=== PATIENT | female | born 1960 | race Caucasian/White ===

== ENCOUNTER 2019-09-03 13:03 | Emergency (ER) | payer OTHER ==
[~2019-09-03] VITALS: Ht 160 cm; Wt 59.0 kg
[~2019-09-03 13:03] MED LIST: COZAAR25 MG; SYNTHROID50 MCG
[2019-09-03] MEDS ORDERED: LEVOXYL75 MCG (14:09)
== END 2019-09-03 19:00 | disposition home or self-care (01) ==
LOC: ER 13:03
DX: H81.13 Benign paroxysmal vertigo, bilateral (principal)

== ENCOUNTER 2021-01-09 08:30 | Inpatient (IN) | payer OTHER ==
[~2021-01-09] VITALS: Ht 162.6 cm; Wt 59.0 kg
[~2021-01-09 08:30] MED LIST changes: +LEVOXYL75 MCG
[2021-01-09] MEDS ORDERED: LEVOXYL88 MCG PO (12:20)
[2021-01-09] MEDS ORDERED: LEVOXYL75 MCG PO (12:20)
[2021-01-09] MEDS ORDERED: COZAAR25 MG PO (12:20)
[2021-01-13] MEDS ORDERED: FAMOTIDINE20 MG (10:55)
[2021-01-16] MEDS ORDERED: ULTRACET PO (12:36)
[2021-01-16] MEDS ORDERED: INTESTINEX680 M1 PO (12:36)
[2021-01-16] MEDS ORDERED: HYOSCYAMINE0.125 M1 SL (12:36)
[2021-01-16] MEDS ORDERED: DICLOFENAC SODI75 MG PO (12:37)
[2021-01-16] MEDS ORDERED: PROTONIX40 MG PO (12:37)
== END 2021-01-16 16:00 | disposition home or self-care (01) | DRG 331 ==
LOC: O/R 01-13 05:30 → SURH 01-13 05:30
PROVIDERS: ADMIT Surgery; ATTEND Surgery
PROC: 0DTP4ZZ Resection of Rectum, Percutaneous Endoscopic Approach (ICD-10-PCS; 2021-01-13)
PROC: 0DTN4ZZ Resection of Sigmoid Colon, Percutaneous Endoscopic Approach (ICD-10-PCS; principal; 2021-01-13 14:00)
DX: K57.20 Diverticulitis of large intestine with perforation and abscess without bleeding (principal); D36.0 Benign neoplasm of lymph nodes; K58.9 Irritable bowel syndrome, unspecified; I11.9 Hypertensive heart disease without heart failure; E03.8 Other specified hypothyroidism

== ENCOUNTER 2022-01-06 02:14 | Emergency (ER) | payer OTHER ==
[~2022-01-06] VITALS: Ht 157.5 cm; Wt 59.0 kg
[~2022-01-06 02:14] MED LIST changes: +COZAAR25 MG PO; +DICLOFENAC SODI75 MG PO; +FAMOTIDINE20 MG; +HYOSCYAMINE0.125 M1 SL; +INTESTINEX680 M1 PO; +LEVOXYL75 MCG PO; +LEVOXYL88 MCG PO; +PROTONIX40 MG PO; +ULTRACET PO
[2022-01-06] MEDS ORDERED: MEDROLPACK PO (06:38)
[2022-01-06] MEDS ORDERED: NORFLEX100MG PO (06:38)
== END 2022-01-06 07:41 | disposition home or self-care (01) ==
LOC: ER 02:14
DX: M50.321 Other cervical disc degeneration at C4-C5 level (principal); R51.9 Headache, unspecified; Z88.1 Allergy status to other antibiotic agents; Z88.0 Allergy status to penicillin; I10 Essential (primary) hypertension; E03.9 Hypothyroidism, unspecified; E78.5 Hyperlipidemia, unspecified; Z90.49 Acquired absence of other specified parts of digestive tract

== ENCOUNTER 2024-12-21 14:13 | Outpatient (CLI) | payer OTHER ==
[~2024-12-21 14:13] MED LIST changes: +MEDROLPACK PO; +NORFLEX100MG PO
== END 2024-12-21 14:15 | disposition home or self-care (01) ==
LOC: SONOGRAMA 14:13
PROVIDERS: ATTEND Pathology Anatomic Pathology
DX: D44.0 Neoplasm of uncertain behavior of thyroid gland (principal); E04.2 Nontoxic multinodular goiter